=== PATIENT | female | born 2000 | race Caucasian/White ===

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

== ENCOUNTER → 2022-07-24 | Outpatient (CLI) | payer BC, OTHER | END | disposition home or self-care (01) | LOC: LABWHC1 16:23 | PROVIDERS: ATTEND Obstetrics & Gynecology | DX: O20.0 Threatened abortion (principal); Z3A.00 Weeks of gestation of pregnancy not specified | CPT/HCPCS: 36415; 84702; 86850 ==

== ENCOUNTER → 2022-08-23 | Outpatient (CLI) | payer OTHER | END | disposition home or self-care (01) | LOC: LABWHC1 10:56 | PROVIDERS: ATTEND Obstetrics & Gynecology | DX: O03.9 Complete or unspecified spontaneous abortion without complication (principal) | CPT/HCPCS: 36415; 84702; 86850; 86870; 86880; 86900; 86901 ==

== ENCOUNTER → 2023-02-17 | Outpatient (CLI) | payer OTHER ==
--- NOTE | 2023-02-18 07:33 | US ---
EXAMINATION TYPE: Transabdominal DATE OF EXAM: 02/17/2023 4:06 PM COMPARISON: NONE CLINICAL INDICATION: Female, 22 years old with history of Z36.89 ENCOUNTER FOR OTHER SPECIFIED ANTENA EDUARDO SCREENING; confirm dates EXAM PERFORMED: Transabdominal (TA) EXAM MEASUREMENTS: GESTATIONAL AGE / DATING Physician Established: Not yet established Dates by LMP: (12 weeks/3 days) EDC: 08/29/2023 Dates by First Scan: No previous this is first scan Dates by Current Scan for: (12 weeks/6 days) EDC: 08/26/2023 MATERNAL ANATOMY Uterus: 16.9 x 8.2 x 10.7 cm Right Ovary: 3.0 x 2.0 x 2.6 cm Left Ovary: obscured by bowel gas. Post CDS / Adnexa: wnl Presence of free fluid: no Presence of corpus luteal cyst: no Presence of subchorionic bleed: no GESTATION / SURVEY CRL: 63.71 (12 weeks/6 days) Heart Rate: 172 bpm Rhythm: Normal IUP: Viable IUP IMPRESSION: Single live intrauterine gestation with ultrasound age 12 weeks 6 days.
== END | disposition home or self-care (01) ==
LOC: RADUSWWP 15:41
PROVIDERS: ATTEND Obstetrics & Gynecology
DX: Z36.89 Encounter for other specified antenatal screening (principal); Z3A.12 12 weeks gestation of pregnancy
CPT/HCPCS: 76801

== ENCOUNTER 2023-04-18 10:47 | Outpatient (CLI) | payer OTHER ==
[2023-04-18 11:24] VITALS: BP 117/73; PULSE 88; RESP 18
[2023-04-18 11:25] LABS: Appearance,Urine Cloudy (Clear); Bacteria,Urine Few /hpf; Bilirubin,Urine Negative (Negative); Blood,Urine Moderate (Negative); Color,Urine Light Red; Glucose,Urine (UA) Negative (Negative); Ketones,Urine Negative (Negative); Leukocyte Esterase,Urine Large (Negative); Mucus,Urine Few /hpf; Nitrite,Urine Negative (Negative); PH, Urine 7.5 (5.0-8.0); Protein,Urine 1+ (Negative); RBC,Urine 140 /hpf (0-5); Specific Gravity,Urine 1.018 (1.001-1.035); Squamous Epithelial Cell,Urine 22 /hpf (0-4); Urobilinogen,Urine <2.0 mg/dL (<2.0); WBC,Urine >182 /hpf (0-5)
[2023-04-18] MEDS ORDERED: SULFAMETHOX-TMP 800-160MG 1 EACH TAB PO STA (12:05)
--- NOTE | 2023-04-19 07:03 | P.MSEPDOC ---
Presenting Problems - Arrival Data Date of Arrival on Unit: 04/18/23 Time of Arrival on Unit: 10:50 Mode of Transport: Ambulatory - Complaint OB-Reason for Admission/Chief Complaint: Other Comment: Spotting, cramping Medical History - Information : 5 Para: 1 Term: 1 : 0 Abortions: Spontaneous or Elective: 3 Number of Living Children: 1 - Gestational Age Gestational Age by BECKA (wks/days): 21 Weeks and 3 Days - History Comment: Baby has heart defect Review of Systems - Review of Systems Constitutional: No problems Breast: No problems ENT: No problems Cardiovascular: No problems Respiratory: No problems Gastrointestinal: No problems Genitourinary: No problems Musculoskeletal: No problems Neurological: No problems Skin: No problems Vital Signs - Temperature Temperature Source: Temporal Artery Scan - Pulse Right Brachial Pulse Rate: 88 Pulse Assessment Method: Automatic Cuff - Respirations Respiratory Rate: 18 Oxygen Delivery Method: Room Air O2 Sat by Pulse Oximetry: 97 - Blood Pressure Right Arm Blood Pressure: 117/73 Blood Pressure Mean: 87 Blood Pressure Source: Automatic Cuff Medical Screen Scoring - Cervical Exam Dilation (cm): 0 Effacement (%): 0 Membranes: Intact - Assessment - Baby A Baseline FHR: 155 Physician Notification - Physician Notified Physician Notified Date: 04/18/23 Physician Notified Time: 11:07 Physician: Dr Esteban New Order Received: Yes - Notification Comment Comment: Order for vag exam and UA Maternal Triage Index - Maternal Triage Index Presenting for scheduled procedure w/no complaint: No - Stat/Priority 1 Stat Priority 1: No - Urgent/Priority 2 Urgent Priority 2: No - Prompt/Priority 3 Prompt Priority 3: No - Non-Urgent/Priority 4 Non-Urgent Priority 4: Yes Criteria Met for Priority 4: Dr Esteban called at 1107 and orders received Disposition - Disposition OB Disposition: Discharge to home Discharge Date: 04/18/23 Discharge Time: 12:10 I agree with the RN Medical Screening Exam: Yes Case reviewed; plan agreed upon as documented in EMR&OBIX.: Yes Diagnosis: OTH RELATED CONDITIONS, SECOND TRIMESTER (Patient presents to labor and delivery with complaints of spotting and cramping. Is no evidence of any vaginal bleeding however urinalysis is consistent with a urinary tract infection. Patient is ALLERGIC to penicillin therefore is given an oral dose of Bactrim and I did send a prescription in to the pharmacy for her. She is to follow up with if not improved within 48 hours.)
== END 2023-04-18 12:10 | disposition home or self-care (01) ==
LOC: FBPOP 10:47
PROVIDERS: ATTEND Obstetrics & Gynecology
DX: O26.892 Other specified pregnancy related conditions, second trimester (principal); R25.2 Cramp and spasm; Z3A.21 21 weeks gestation of pregnancy; Z88.0 Allergy status to penicillin
CPT/HCPCS: 81001; 87086; G0463; 99213

== ENCOUNTER 2023-10-03 21:53 | Emergency (ER) | payer OTHER ==
[2023-10-03 22:10] VITALS: TEMP 98.3
[2023-10-03 22:39] LABS: Basophils % (A) 0 %; Eosinophils # (A) 0.1 k/uL (0-0.7); Eosinophils % (A) 1 %; HCT 39.7 % (34.0-46.0); HGB 14.2 gm/dL (11.4-16.0); Lymphocytes # (A) 3.3 k/uL (1.0-4.8); Lymphocytes % (A) 37 %; MCHC 35.9 g/dL (31.0-37.0); MCV 80.9 fL (80.0-100.0); Mean Platelet Volume 8.4; Monocytes # (A) 0.4 k/uL (0-1.0); Monocytes % (A) 4 %; Neutrophils # (A) 4.9 k/uL (1.3-7.7); Neutrophils % (A) 56 %; Platelet Count 282 k/uL (150-450); RBC 4.91 m/uL (3.80-5.40); RDW 14.2 % (11.5-15.5); WBC 8.8 k/uL (3.8-10.6)
[2023-10-03] MEDS: SODIUM CHLORIDE 0.9% 1,000 ML IV STA (22:39)
[2023-10-03] MEDS: ACETAMINOPHEN TAB 325 MG TAB PO STA (22:39)
[2023-10-03] MEDS: diphenhydrAMINE 50 MG/ML 1 ML VIAL IVP STA (22:39)
[2023-10-03 22:48] LABS: Partial Thromboplastin Time 26.3 sec (22.0-30.0); Prothrombin Time 10.7 sec (10.0-12.5)
[2023-10-03 23:00] LABS: ALT 16 U/L (4-34); AST 20 U/L (14-36); African American GFR (CKD) >90 (>60 ml/min/1.73 sqM); Albumin 4.4 g/dL (3.5-5.0); Alkaline Phosphatase 55 U/L (38-126); Anion Gap 12 mmol/L; Blood Urea Nitrogen 12 mg/dL (7-17); Calcium 9.8 mg/dL (8.4-10.2); Carbon Dioxide 16 mmol/L (22-30); Chloride 108 mmol/L (98-107); Glucose 122 mg/dL (74-99); Magnesium 1.6 mg/dL (1.6-2.3); Non-African American GFR(CKD) >90 (>60 ml/min/1.73 sqM); Potassium 3.7 mmol/L (3.5-5.1); Sodium 136 mmol/L (137-145); Total Bilirubin 0.4 mg/dL (0.2-1.3); Total Protein 7.3 g/dL (6.3-8.2)
--- NOTE | 2023-10-03 23:34 | XR ---
EXAM: XR Chest, 2 Views CLINICAL HISTORY: ITS.REASON XR Reason: Chest Pain TECHNIQUE: Frontal and lateral views of the chest. COMPARISON: No previous studies. FINDINGS: Lungs: Unremarkable. No consolidative changes. Pleural space: Unremarkable. No pneumothorax. No pleural effusions. Heart: Unremarkable. No cardiomegaly. Mediastinum: Cardiomediastinal silhouette unremarkable. Bones/joints: The osseous structures and soft tissues are unremarkable. No acute fracture. IMPRESSION: No active disease.
--- NOTE | 2023-10-04 00:15 | US ---
EXAM: US , Transvaginal CLINICAL HISTORY: ITS.REASON US Reason: pain TECHNIQUE: Real-time transvaginal obstetrical ultrasound of the maternal pelvis and a first trimester with image documentation. Transvaginal imaging was used for better evaluation of the fetus and adnexa. COMPARISON: No previous studies. FINDINGS: Gestation: Possible early gestational sac at the uterine fundus measuring 0.44 cm corresponding to a gestational age of less than 5 weeks. Yolk sac is not visualized. No pole is visualized. Placenta/amniotic fluid: Cannot be adequately evaluated due to the early gestational age. Uterus/cervix: The uterus measures 9.8 x 5.7 x 7.3 cm. No myometrial mass. Ovaries: Right ovary measures 2.3 x 1.9 x 2.6 cm. Left ovary measures 2.5 x 1.7 x 2.2 cm. No mass. Free fluid: Minimal simple free fluid within the posterior cul-de-sac extending to the adnexal regions. IMPRESSION: 1. Anechoic structure within endometrial canal which could represent a very early intrauterine gestational sac. 2. No yolk sac are pole detected. 3. A pseudo-gestational sac of ectopic cannot be excluded. Clinical correlation and correlation with laboratory values, and repeat imaging in one week are advised. 4. Moderate simple free fluid. 5. Ovaries are unremarkable.
[2023-10-04 00:45] LABS: Appearance,Urine Clear (Clear); Bilirubin,Urine Negative (Negative); Blood,Urine Negative (Negative); Color,Urine Colorless; Glucose,Urine (UA) Negative (Negative); Ketones,Urine Negative (Negative); Leukocyte Esterase,Urine Negative (Negative); Nitrite,Urine Negative (Negative); PH, Urine 6.5 (5.0-8.0); Protein,Urine Negative (Negative); Specific Gravity,Urine 1.007 (1.001-1.035); Urobilinogen,Urine <2.0 mg/dL (<2.0)
[2023-10-04] MEDS: SODIUM CHLORIDE 0.9% 500 ML 500 ML IV ONE (01:15)
[2023-10-04 02:05] VITALS: BP 131/79; PULSE 93; RESP 16
--- NOTE | 2023-10-04 02:26 | ED ---
Chest Pain HPI - General Chief Complaint: Chest Pain Stated Complaint: chest pain Time Seen by Provider: 10/03/23 22:03 Source: patient Mode of arrival: ambulatory Limitations: no limitations - History of Present Illness Initial Comments: 23-year-old female presenting with chief complaint of chest pain. Patient is currently 5 weeks LMP 08/29. She states that around 4:00 she was sitting down relaxing when she felt her heart racing and this chest pain started. When asked to describe the character of the pain she states "it feels like my heart is breaking". She admits to lower back cramping. No pelvic pain. No vaginal bleeding. No dysuria, hematuria, urgency, frequency. No fever, chills, cough, congestion, sore throat. No abdominal pain, nausea, vomiting. She admits to numbness and tingling in the extremities - Related Data Previous Rx's Medication Instructions Recorded Ibuprofen [Motrin] 600 mg PO Q6HR PRN #30 tab 11/21/20 Allergies Allergy/AdvReac Type Severity Reaction Status Date / Time Penicillins Allergy Swelling Verified 10/03/23 21:57 Review of Systems ROS Statement: Those systems with pertinent positive or pertinent negative responses have been documented in the HPI. ROS Other: All systems not noted in ROS Statement are negative. EKG Findings - EKG Comments: EKG Findings:: Initial EKG taken at 2205 shows sinus tachycardia with ventricular rate 134. GA interval 120. QRS 82. QT 331. QTc 410. Patient was tearful and hyperventilating while obtaining this EKG. Repeat EKG obtained at 11 when the patient's symptoms have improved. Shows sinus rhythm ventricular rate 94. GA interval 141. QRS 84. QT 346. QTc 390. No ischemic changes. Past Medical History Past Medical History: No Reported History Additional Past Medical History / Comment(s): UTI, History of Any Multi-Drug Resistant Organisms: None Reported Past Surgical History: No Surgical Hx Reported Past Anesthesia/Blood Transfusion Reactions: No Reported Reaction Past Psychological History: ADD/ADHD, Anxiety, Depression Smoking Status: Never smoker Past Alcohol Use History: None Reported Past Drug Use History: Marijuana - Past Family History Father Family Medical History: No Reported History General Exam Limitations: no limitations General appearance: alert, in distress (Patient is crying and hyperventilating) Head exam: Present: atraumatic, normocephalic, normal inspection Eye exam: Present: normal appearance Neck exam: Present: normal inspection Respiratory exam: Present: normal lung sounds bilaterally. Absent: respiratory distress, wheezes, rales, rhonchi, stridor Cardiovascular Exam: Present: normal rhythm, tachycardia, normal heart sounds. Absent: systolic murmur, diastolic murmur, rubs, gallop, clicks Back exam: Present: normal inspection. Absent: tenderness Neurological exam: Present: alert, oriented X3 Psychiatric exam: Present: anxious Skin exam: Present: warm, dry Course Vital Signs 10/03/23 10/03/23 10/04/23 21:54 22:29 00:11 Temperature 98.3 F Pulse Rate 129 H 99 82 Respiratory 20 20 18 Rate Blood Pressure 173/111 151/95 109/75 O2 Sat by Pulse 100 99 98 Oximetry 10/04/23 02:03 Temperature Pulse Rate 93 Respiratory 16 Rate Blood Pressure 131/79 O2 Sat by Pulse 98 Oximetry Chest Pain MDM - MDM Was pt. sent in by a medical professional or institution (, [place], [facility], urgent care, hospital, or retirement...) When possible be specific @ -No Did you speak to anyone other than the patient for history (EMS, parent, family, police, friend...)? What history was obtained from this source @ -History was supplemented by the patient's partner at bedside Did you review nursing and triage notes (agree or disagree)? Why? @ -I reviewed and agree with nursing and triage notes Were old charts reviewed (outside hosp., previous admission, EMS record, old EKG, old radiological studies, urgent care reports/EKG's, retirement records)? Report findings @ -No old charts were reviewed Differential Diagnosis (chest pain, altered mental status, abdominal pain women, abdominal pain men, vaginal bleeding, weakness, fever, dyspnea, syncope, headache, dizziness, GI bleed, back pain, seizure, CVA, palpatations, mental health, musculoskeletal)? @ -MDM Differential Chest Pain: Stable Angina, Unstable Angina, STEMI, NSTEMI Aortic Dissection, Pneumothorax, Musculoskeletal, Esophageal Spasm GERD, Cholecystitis, Pancreatitis, Zoster This is not meant to be an all-inclusive list. EKG interpreted by me (3pts min.). @ -As above X-rays interpreted by me (1pt min.). @ -Chest x-ray shows no acute cardiopulmonary process CT interpreted by me (1pt min.). @ -None done U/S interpreted by me (1pt. min.). @ -Ultrasound shows anechoic structure within the endometrial canal which could represent a very early intrauterine gestational sac. No yolk sac or pole detected. A pseudo gestational sac of ectopic cannot be excluded. Clinical correlation and correlation with laboratory values and repeat imaging in 1 week are advised. Moderate simple free fluid. Ovaries are unremarkable. What testing was considered but not performed or refused? (CT, X-rays, U/S, labs)? Why? @ -None What meds were considered but not given or refused? Why? @ -None Did you discuss the management of the patient with other professionals (professionals i.e. , PA, [facility], lab, RT, psych nurse, school social worker, binding end stitcher, teacher, chemical instrumentation officer, caseworker intake)? Give summary @ -No Was smoking cessation discussed for >3mins.? @ -No Was critical care preformed (if so, how long)? @ -No Were there social determinants of health that impacted care today? How? (Homelessness, low income, unemployed, alcoholism, drug addiction, transportation, low edu. Level, literacy, decrease access to med. care, intermediate, rehab)? @ -No Was there de-escalation of care discussed even if they declined (Discuss DNR or withdrawal of care, Hospice)? DNR status @ -No What co-morbidities impacted this encounter? (DM, HTN, Smoking, COPD, CAD, Cancer, CVA, ARF, Chemo, Hep., AIDS, mental health diagnosis, sleep apnea, morbid obesity)? @ -None Was patient admitted / discharged? Hospital course, mention meds given and route, prescriptions, significant lab abnormalities, going to OR and other pertinent info. @ -23-year-old female currently 5 weeks presenting with chief complaint of chest pain. Chest pain and heart racing started around 4:00 this evening. When I enter the room to begin the history and physical exam the patient is crying and hyperventilating. The patient was coached on how to slow down her breathing which then improved her vital signs. On physical exam heart and lungs are clear to auscultation, the patient is tachycardic. No lower extremity swelling. She admits to lower back cramping, no tenderness. Lab work shows no leukocytosis or anemia. Sodium 136, patient is receiving IV fluids. Chloride 108 and carbon dioxide 16 with anion gap of 12, likely due to hyperventilating. Patient is negative for influenza, RSV, and COVID. Initial EKG shows sinus tachycardia, negative troponin. Repeat EKG shows sinus rhythm. TSH is WNL. hCG is 1978, ultrasound is limited due to early gestational age, there is what might be a gestational sac in the uterus. I discussed with the patient and her partner at the risks and benefits of performing a D-dimer. Shared decision-making was utilized and the patient elected to have the D-dimer ran. D-dimer 0.20. Patient's vital signs are WNL. She is resting comfortably showing no acute signs of distress. Patient and her partner educated on today's findings. They are instructed to follow-up with their PCP and educated on possible Holter monitor through PCP. Discharged home. Follow-up with PCP. Report back to ER with any new or worsening symptoms. Discussed return parameters and answered all questions. Patient conveyed verbal understanding and agreed to the plan. I discussed this case in detail with my attending Dr. Colvin Undiagnosed new problem with uncertain prognosis? @ -No Drug Therapy requiring intensive monitoring for toxicity (Heparin, Nitro, Insulin, Cardizem)? @ -No Were any procedures done? @ -No Diagnosis/symptom? @ -Atypical chest pain, panic attack Acute, or Chronic, or Acute on Chronic? @ -Acute Uncomplicated (without systemic symptoms) or Complicated (systemic symptoms)? @ -Complicated Side effects of treatment? @ -No Exacerbation, Progression, or Severe Exacerbation? @ -No Poses a threat to life or bodily function? How? (Chest pain, [place], [place], pneumonia, PE, COPD, D or text KA, ARF, appy, cholecystitis, CVA, Diverticulitis, Homicidal, Suicidal, threat to staff... and all critical care pts) @ -No Disposition Clinical Impression: Atypical chest pain, Panic attack Disposition: HOME SELF-CARE Condition: Good Instructions (If sedation given, give patient instructions): Chest Pain (ED), Panic Attack (ED) Additional Instructions: Follow-up with PCP and [employer] INSTALLATIONS MECHANIC. You may require a Holter monitor or further testing with your primary care doctor. Report back to ER with any new or worsening symptoms. Is patient prescribed a controlled substance at d/c from ED?: No Referrals: Renita Eckert MD [Primary Care Provider] - 1-2 days Lois Causey DO [Doctor of Osteopathic Medicine] - 1-2 days Time of Disposition: 02:25
== END 2023-10-04 02:31 | disposition home or self-care (01) ==
LOC: EC 21:53
DX: O99.341 Other mental disorders complicating pregnancy, first trimester (principal); F41.0 Panic disorder [episodic paroxysmal anxiety]; O26.891 Other specified pregnancy related conditions, first trimester; R00.0 Tachycardia, unspecified; R07.89 Other chest pain; O99.321 Drug use complicating pregnancy, first trimester; F12.90 Cannabis use, unspecified, uncomplicated; Z86.59 Personal history of other mental and behavioral disorders; Z3A.01 Less than 8 weeks gestation of pregnancy; Z20.822 Contact with and (suspected) exposure to COVID-19; Z88.0 Allergy status to penicillin
CPT/HCPCS: 99285; 96374; 96361 ×2; 93005; 80053; 83735; 84484; 85025; 85610; 85730; 84702; 87636; 71046; J1200; 36415; 76801; 76817; 81003; 84443; 85379

== ENCOUNTER 2024-04-19 14:43 | Outpatient (CLI) | payer OTHER ==
[2024-04-19 15:45] VITALS: BP 132/84; PULSE 115; TEMP 97.7
[2024-04-19] MEDS: LACTATED RINGERS 1,000 ML IV ONE (17:12)
[2024-04-19 18:44] VITALS: RESP 16
--- NOTE | 2024-06-09 10:30 | P.MSEPDOC ---
Presenting Problems - Arrival Data Date of Arrival on Unit: 04/19/24 Time of Arrival on Unit: 14:43 Mode of Transport: Ambulatory - Complaint OB-Reason for Admission/Chief Complaint: Rule Out PROM Comment: pt arrived c/o questionable ROM PT STATES SHES HAD A COUPLE OF GUSH OF FLUID EARLIER. AND C/O SOME MILD RAMPING. NO ACTIVE FLUID LEAKING AT THIS TIME AND UNDERWEAR. DRY Medical History - Information : 6 Para: 1 Term: 1 : 0 Abortions: Spontaneous or Elective: 4 Number of Living Children: 1 - Gestational Age Gestational Age by BECKA (wks/days): 33 Weeks and 3 Days Review of Systems - Review of Systems Constitutional: No problems Breast: No problems ENT: No problems Cardiovascular: No problems Respiratory: No problems Gastrointestinal: No problems Genitourinary: No problems Musculoskeletal: No problems Neurological: No problems Skin: No problems Vital Signs - Temperature Temperature: 97.7 F Temperature Source: Oral - Pulse Left Pulse Oximetery Pulse Rate: 115 Pulse Assessment Method: Automatic Cuff - Respirations Respiratory Rate: 16 Oxygen Delivery Method: Room Air - Blood Pressure Left Arm Blood Pressure: 132/84 Blood Pressure Mean: 100 Blood Pressure Source: Automatic Cuff Medical Screen Scoring - Cervical Exam Dilation (cm): 1 Effacement (%): 50 Station: -3 Membranes: Intact - Uterine Contractions Frequency From (mins): 7 Frequency To (mins): 8 Duration From (seconds): 40 Duration To (seconds): 50 Intensity: Mild Resting: Soft to palpation - Assessment - Baby A Baseline FHR: 140 Heart Rate - NICHD Category: Category I (Normal) NST: Reactive Physician Notification - Physician Notified Physician Notified Date: 04/19/24 Physician Notified Time: 15:20 Physician: DR SHARMA New Order Received: Yes - Notification Comment Comment: CHECK CERVIX AND RECHECK IN 1 HOUR / CERVIX CHECKED AND FT AND LONG WITH NO CHANGE IN CERVIX AFTER 1 HOUR PT NATE AND IV FLUID STARTED. CONTRACTIONS SPACED PT DISCHARGED TO HOME UNDEIVERED WITH INSTRUCTIONS Maternal Triage Index - Maternal Triage Index Presenting for scheduled procedure w/no complaint: No - Stat/Priority 1 Stat Priority 1: No - Urgent/Priority 2 Urgent Priority 2: Yes Provider Notified: Lois Sharma Provider Notified Time: 15:20 Criteria Met for Priority 2: rule out possible SROM. - Non-Urgent/Priority 4 Non-Urgent Priority 4: Yes Criteria Met for Priority 4: PT OF DR EDITH ARRIVED C/O QUESTIONABLE ABOUT HER WATER BREAKING. PT STATESSHE HAS HAD A COUPLE OF LIGHT GUSH OF FLUID.BUT DENIES ANY LEAKING AT THIS TIME. EDC 06/04 DENIES ANY PROBLEMS WITH THE Disposition - Disposition OB Disposition: Discharge to home Discharge Date: 04/19/24 Discharge Time: 18:17 I agree with the RN Medical Screening Exam: No Case reviewed; plan agreed upon as documented in EMR&OBIX.: Yes Diagnosis: FALSE LABOR BEFORE 37 COMPLETED WEEKS OF GEST, THIRD TRI
== END 2024-04-19 18:17 | disposition home or self-care (01) ==
LOC: FBPOP 14:43
PROVIDERS: ATTEND Obstetrics & Gynecology Obstetrics
CPT/HCPCS: 59025; 96360; 96367; 99213

== ENCOUNTER 2024-05-17 00:59 | Inpatient (IN) | payer OTHER ==
[2024-05-17] MEDS ORDERED: miSOPROStoL 200 MCG TAB RECTAL PRN (01:35)
[2024-05-17] MEDS ORDERED: CARBOPROST TROMETHAMINE 250 MCG/ML 1 ML AMP IM PRN (01:35)
[2024-05-17] MEDS ORDERED: OXYTOCIN 10 UNIT/ML 1 ML VIAL IM PRN (01:35)
[2024-05-17] MEDS ORDERED: TERBUTALINE 1 MG/ML VIAL SQ PRN (01:35)
[2024-05-17] MEDS ORDERED: miSOPROStoL 200 MCG TAB PO PRN (01:35)
[2024-05-17] MEDS ORDERED: LIDOCAINE 0.5% (PF) 5 MG/ML (50 ML SDV) SQ PRN (01:35)
[2024-05-17] MEDS ORDERED: TRANEXAMIC 1,000 MG/100ML-NACL 1,000 MG in EMPTY BAG 1 BAG IV PRN (01:35)
[2024-05-17] MEDS ORDERED: METHYLERGONOVINE 0.2 MG/ML 1 ML AMP IM PRN (01:35)
[2024-05-17] MEDS: LACTATED RINGERS 1,000 ML IV SCH ×2 (01:38→02:30)
[2024-05-17] MEDS ORDERED: OXYTOCIN 30 UNITS/500 ML NS 30 UNIT in SALINE 1 500ML.BAG IV SCH (01:45)
[2024-05-17 02:19] LABS: Anisocytosis Slight; Basophils % (A) 0 %; Eosinophils # (A) 0.2 k/uL (0-0.7); Eosinophils % (A) 1 %; HCT 38.2 % (34.0-46.0); HGB 11.8 gm/dL (11.4-16.0); Hypochromasia Marked; Lymphocytes # (A) 1.7 k/uL (1.0-4.8); Lymphocytes % (A) 11 %; MCH 23.5 pg (25.0-35.0); MCV 75.9 fL (80.0-100.0); Mean Platelet Volume 7.3; Microcytosis Moderate; Monocytes # (A) 0.7 k/uL (0-1.0); Monocytes % (A) 5 %; Neutrophils % (A) 83 %; Platelet Count 272 k/uL (150-450); Poikilocytosis Slight; RBC 5.03 m/uL (3.80-5.40); RDW 18.5 % (11.5-15.5); WBC 15.7 k/uL (3.8-10.6)
[2024-05-17] MEDS ORDERED: SODIUM CHLORIDE 0.9% 250 ML BAG ONE (02:57)
[2024-05-17] MEDS ORDERED: fentaNYL (PF) 50 MCG/ML 5 ML AMP ONE (02:57)
[2024-05-17] MEDS ORDERED: ROPIVACAINE 5 MG/ML 30 ML VIAL ONE (02:57)
[2024-05-17] MEDS: OXYTOCIN 30 UNITS/500 ML NS 30 UNIT in SALINE 1 500ML.BAG IV SCH (05:25)
--- NOTE | 2024-05-17 05:43 | P.HPOB ---
History of Present Illness H&P Date: 05/17/24 Chief Complaint: uterine contractions Ms. Cline is a 23 year old at 37 weeks and 2 days with EDC of 06/05/2024 by LMP consistent with 8 week US who presents with regular, painful uterine contractions. She is found to be dilated to 4 centimeters with a bulging bag and visibly uncomfortable. Her has been complicated by diet-controlled gestational diabetes. This fetus is estimated to be 7#1oz by a 35 week growth US. The patient also has a history of anxiety, depression, and panic attacks for which she has not been on medications during the . Obstetric history: 11/20/2020 - male, 40 weeks, 7#14oz, complicated pre-elcampsia and child with bicuspid aortic valve 05/05/2023 - voluntary termination of at 23-24 weeks for hypoplastic heart syndrome and poor prognosis 3 SABs work-up: blood type O negative (s/p rhogam at 28 weeks), antibody screen negative, rubella immune, VDRL non-reactive, HBsAg negative, HIV negative, HCV non-reactive, gonorrhea negative, chlamydia negative, 1 hour and 3 hour GTTs abnormal, GBS negative. Past Medical History Past Medical History: No Reported History Additional Past Medical History / Comment(s): UTI, History of Any Multi-Drug Resistant Organisms: None Reported Past Surgical History: No Surgical Hx Reported Past Anesthesia/Blood Transfusion Reactions: No Reported Reaction Past Psychological History: ADD/ADHD, Anxiety, Depression Smoking Status: Never smoker Past Alcohol Use History: None Reported - Past Family History Father Family Medical History: No Reported History Medications and Allergies Home Medications Medication Instructions Recorded Confirmed Type Aspirin [Adult Low Dose Aspirin EC] 81 mg PO DAILY 04/19/24 05/17/24 History Pnv 11/Iron Fum/Folic Acid/Om3 1 each PO DAILY 04/19/24 05/17/24 History [Wesnate Dha Softgel] Allergies Allergy/AdvReac Type Severity Reaction Status Date / Time Penicillins Allergy Swelling Verified 05/17/24 01:04 Exam Vital Signs Temp Pulse Resp BP Pulse Ox 05/17/24 02:05 97.7 F 91 18 129/84 99 05/17/24 01:48 97.7 F 91 18 129/84 99 Intake and Output 05/16/24 05/16/24 05/17/24 14:59 22:59 06:59 Intake Total 1000 Balance 1000 Intake: IV 1000 Other: # Voids 1 Weight 84.822 kg Focused physical exam is performed. This is a healthy-appearing in no apparent distress. Breathing is non-labored. Abdomen is gravid and non-tender. Cervical exam is complete and 0 station. AROM is undertaken with clear fluid noted. Extremities non-tender and non-edematous. heart tones are Category I and tocometer is graphing contractions every 2-4 minutes. Results Result Diagrams: 05/17/24 01:40 Abnormal Lab Results - Last 24 Hours (Table) 05/17/24 Range/Units 01:40 WBC 15.7 H (3.8-10.6) k/uL MCV 75.9 L (80.0-100.0) fL MCH 23.5 L (25.0-35.0) pg RDW 18.5 H (11.5-15.5) % Neutrophils # 13.0 H (1.3-7.7) k/uL Assessment and Plan Assessment: 23 year old at 37 weeks and 2 days presenting in labor Plan: Admit, clear liquid diet, epidural prn, expectant management. Anticipate vaginal delivery.
--- NOTE | 2024-05-17 05:46 | P.PROBDLV ---
Vaginal Delivery Note - . Vaginal Delivery Note: DATE OF SERVICE: 05/17/2024 PROCEDURE: Normal Vaginal Delivery ATTENDING: Dr. Blanca Rosenthal MD ESTIMATED BLOOD LOSS: 200 mL FINDINGS: VMI, Apgars 8/9. Weight 7 pounds 0 ounces (3195 grams) PROCEDURE: Ms. Cline is a 23 year old at 37 weeks and 2 days presenting in spontaneous labor. The has been complicated by diet-controlled gestational diabetes. For further details, please review the admitting H&P. The patient received epidural anesthesia per her request. The patient was completely dilated at 500. AROM was undertaken at 517 revealing clear amniotic fluid. The patient pushed 2-3 times with Category I heart tones. A viable male infant was delivered at 522. The infant was placed on the maternal abdomen and bulb suctioned. The infant was noted to be spontaneously crying. Cord was clamped and cut after a 60-second delay. The was handed off to the pediatric team. Placenta was delivered whole in a spontaneous fashion at 525. Oxytocin was started to facilitate uterine tone. Uterine fundus was found to be firm and below the umbilicus upon fundal massage. Thorough examination of the cervix, vagina, periurethral area, and perineum revealed no lacerations. The patient is stable and allowed to begin the bonding process.
[2024-05-17] MEDS ORDERED: LANOLIN CREAM 1 GM TUBE TOPICAL PRN (06:23)
[2024-05-17] MEDS ORDERED: diphenhydrAMINE 25 MG CAP PO PRN (06:23)
[2024-05-17] MEDS ORDERED: diphenhydrAMINE 50 MG CAP PO PRN (06:23)
[2024-05-17] MEDS ORDERED: ACETAMINOPHEN TAB 325 MG TAB PO PRN (06:23)
[2024-05-17] MEDS ORDERED: SIMETHICONE 80 MG CHEWABLE PO PRN (06:23)
[2024-05-17] MEDS ORDERED: HYDROCORTISONE 2.5% RECTAL CREAM 30 GM TUBE RECTAL PRN (06:23)
[2024-05-17] MEDS ORDERED: ZOLPIDEM 5 MG TAB PO PRN (06:23)
[2024-05-17] MEDS: BENZOCAINE/MENTHOL SPRAY 1 GM/SPRAY AEROSOL TOPICAL PRN (06:39)
[2024-05-17] MEDS: IBUPROFEN 600 MG TAB PO PRN (07:29)
[2024-05-17] MEDS: SENNOSIDES-DOCUSATE SODIUM 1 EACH TAB PO SCH (15:16)
[2024-05-17 16:49] VITALS: RESP 16
[2024-05-18 06:56] LABS: Anisocytosis Slight; Basophils % (A) 0 %; Eosinophils # (A) 0.2 k/uL (0-0.7); Eosinophils % (A) 2 %; HCT 32.4 % (34.0-46.0); HGB 10.2 gm/dL (11.4-16.0); Hypochromasia Marked; Lymphocytes # (A) 2.3 k/uL (1.0-4.8); Lymphocytes % (A) 22 %; MCH 24.6 pg (25.0-35.0); MCHC 31.4 g/dL (31.0-37.0); MCV 78.5 fL (80.0-100.0); Mean Platelet Volume 7.8; Microcytosis Slight; Monocytes # (A) 0.5 k/uL (0-1.0); Monocytes % (A) 5 %; Neutrophils # (A) 7.7 k/uL (1.3-7.7); Neutrophils % (A) 70 %; Platelet Count 237 k/uL (150-450); Poikilocytosis Slight; RBC 4.13 m/uL (3.80-5.40); RDW 18.4 % (11.5-15.5); WBC 10.9 k/uL (3.8-10.6)
--- NOTE | 2024-05-18 08:37 | P.DS ---
Providers Date of admission: 05/17/24 01:30 Expected date of discharge: 05/18/24 Attending physician: Lois Causey Primary care physician: Stated None - Discharge Diagnosis(es) (1) Term Current Visit: Yes Status: Acute (2) Active labor Current Visit: Yes Status: Acute (3) GDM (gestational diabetes mellitus), class A1 Current Visit: Yes Status: Acute (4) Status post normal vaginal delivery Current Visit: No Status: Acute Hospital Course: This is a 23-year-old 6 now para 2-1-3-2 that presented to labor and delivery on 05/17 in active labor. Patient states she began markus around 8:00 on 05/16. Patient presented to labor and delivery in active labor. Patient had been receiving routine care which was complicated by diagnosis of gestational diabetes which had been controlled with diet alone. For full details in this patient please see the dictated history and physical. Patient was admitted to labor and delivery and progressed through labor eventually receiving an epidural for analgesia. Patient progressed to complete amniotomy was performed she began pushing and had a normal spontaneous vaginal delivery of a viable male at 522, weight of 7 pounds 0 ounces, Apgars of 8 and 9 at 1 and 5 minutes respectively. No vaginal lacerations were appreciated. On this day #1 she is ambulating and voiding without difficulty. She is tolerating a regular diet without nausea or vomiting. She states her pain is well-controlled. She denies concerns and would like discharge home today. Patient Condition at Discharge: Good Plan - Discharge Summary New Discharge Prescriptions: No Action Pnv 11/Iron Fum/Folic Acid/Om3 [Wesnate Dha Softgel] 1 each PO DAILY Aspirin [Adult Low Dose Aspirin EC] 81 mg PO DAILY Discharge Medication List Aspirin [Adult Low Dose Aspirin EC] 81 mg PO DAILY 04/19/24 [History] Pnv 11/Iron Fum/Folic Acid/Om3 [Wesnate Dha Softgel] 1 each PO DAILY 04/19/24 [History] Follow up Appointment(s)/Referral(s): Lois Causey DO [Doctor of Osteopathic Medicine] - 6 Weeks Patient Instructions/Handouts: Vaginal Delivery (GEN), Vaginal Delivery (DC) Activity/Diet/Wound Care/Special Instructions: No tub baths or intercourse until 6 weeks . Agio-gvo-tsbqoza ibuprofen 100 mg or 3 tablets every 6 hours as needed for pain. Routine visit at 6 weeks, should she have any concerns prior to this visit she is urged to call the office. Discharge Disposition: HOME SELF-CARE
[2024-05-18 16:41] VITALS: BP 131/84; PULSE 79; TEMP 97.8
== END 2024-05-18 16:44 | disposition home or self-care (01) | DRG 560 ==
LOC: FBPOP 00:59 → 4FBP 01:30
PROVIDERS: ADMIT Obstetrics & Gynecology; ATTEND Obstetrics & Gynecology Obstetrics
PROC: 10E0XZZ Delivery of Products of Conception, External Approach (ICD-10-PCS; principal; 2024-05-17)
PROC: 10907ZC Drainage of Amniotic Fluid, Therapeutic from Products of Conception, Via Natural or Artificial Opening (ICD-10-PCS; principal; 2024-05-17)
DX: O24.420 Gestational diabetes mellitus in childbirth, diet controlled (principal); O99.344 Other mental disorders complicating childbirth; F41.0 Panic disorder [episodic paroxysmal anxiety]; F32.A Depression, unspecified; F90.9 Attention-deficit hyperactivity disorder, unspecified type; Z79.82 Long term (current) use of aspirin; Z88.0 Allergy status to penicillin; Z3A.37 37 weeks gestation of pregnancy; Z37.0 Single live birth
CPT/HCPCS: 59025; 85025; 86850; 86900; 86901; 99213